=== PATIENT | female | born 1965 | race Caucasian/White ===

== ENCOUNTER 2020-08-30 16:49 | Emergency (ER) | payer OTHER ==
[~2020-08-30] VITALS: Ht 160 cm; Wt 97.7 kg
[~2020-08-30 16:49] MED LIST: LIDOcaine 1% w/epiNEPHrine 1:200,000 30ml vial ONE
[2020-08-30] MEDS ORDERED: LIDOcaine 1% W/epiNEPHrine 1:200,000 10ml vial IJ ONE ×2 (17:10→18:10)
[2020-08-30] MEDS ORDERED: piperacillin/tazo 4.5gm/100ml 100 ML IV STA (17:12)
[2020-08-30] MEDS ORDERED: AMOX-422 PO (17:19)
[2020-08-30] MEDS ORDERED: ceFAZolin/D5W- 1GM premix 50 ML IV SCH (17:40)
[2020-08-30] MEDS ORDERED: ceFAZolin/D5W- 1GM premix 50 ML IV ONE (17:40)
[2020-08-30] MEDS ORDERED: LORazepam 2 mg/ml vial IV ONE (17:40)
[2020-08-30] MEDS ORDERED: dexamethasone 4mg tablet PO ONE (20:00)
[2020-08-30] MEDS ORDERED: diphenhydrAMINE 25mg capsule PO ONE (20:00)
[2020-08-30 20:24] VITALS: BP 137/88
[2020-08-31] MEDS ORDERED: ceFAZolin/D5W- 1GM premix 50 ML IV SCH
== END 2020-08-30 20:15 | disposition home or self-care (01) ==
LOC: EDBD 16:51 → ER 16:51
DX: S01.511A Laceration without foreign body of lip, initial encounter (principal); S01.21XA Laceration without foreign body of nose, initial encounter; S01.85XA Open bite of other part of head, initial encounter; W54.0XXA Bitten by dog, initial encounter; Y93.89 Activity, other specified; Y92.89 Other specified places as the place of occurrence of the external cause; Y99.8 Other external cause status
CPT/HCPCS: 12013; 40650; 96365; 96366; 96368; 96375; 99285; J0690; J2060; J2543; Q0163; 99284